=== PATIENT | female | born 1945 | race Caucasian/White ===

== ENCOUNTER 2024-08-12 09:35 | Day surgery (SDC) | payer MEDICARE, OTHER, SELFPAY ==
[2024-08-12] VITALS (11 sets, daily range): BP systolic 110–144; BP diastolic 68–95; PULSE 61–73; RESP 10–22; TEMP 36.9–37; O2SAT 94–99; BMI 22.7
[2024-08-12] MEDS: MIDAZOLAM INJ 1 MG/ML VIAL 2 ML (ASD USE ONLY) 2 MG IV ×2 (11:48→12:02)
[2024-08-12] MEDS: fentaNYL CIT INJ 50 mCg/ML AMP 2ML (ASD USE ONLY) IV ×2 (11:48→12:02)
--- NOTE | 2024-08-12 12:06 | SUR.OPER ---
1200 Pt has a very tortuous sigmoid. Colon scope exchanged earlier for an upper scope. Pt c/o discomfort. 1205 Procedure stopped. Pt needs to be rescheduled under MAC.
== END 2024-08-12 13:12 | disposition home or self-care (01) ==
PROVIDERS: PCP Family Medicine; Referring Provider Internal Medicine Gastroenterology; Visit Provider Internal Medicine Gastroenterology
PROC: 0DBE8ZX Excision of Large Intestine, Via Natural or Artificial Opening Endoscopic, Diagnostic (ICD-10-PCS; CPT 45380; principal; 2024-08-12 11:30)
DX: K64.9 Unspecified hemorrhoids (principal); K57.30 Diverticulosis of large intestine without perforation or abscess without bleeding
CPT/HCPCS: 45378; A4217; J2250; J3010

== ENCOUNTER 2024-10-25 10:05 | Day surgery (SDC) | payer MEDICARE, OTHER, SELFPAY ==
[2024-10-22 13:27] LABS: Partial Thromboplastin Time 25.3 Seconds (22.0-36.0); Prothrombin Time 10.9 Seconds (9.0-12.2)
[2024-10-22 13:30] LABS: Alanine Aminotransferase 13 U/L (10-49); Albumin, Serum 4.2 gm/dL (3.4-4.8); Albumin/Globulin Ratio 1.9 (1.2-2.2); Alkaline Phosphatase 66 U/L (46-116); Anion Gap 7 (7-16); Aspartate Amino Transferase 20 U/L (0-34); BUN/Creatinine Ratio 18 Ratio (12-20); Bilirubin,Total 1.4 mg/dL (0.3-1.2); Blood Urea Nitrogen 14 mg/dL (9-23); Calcium 9.1 mg/dL (8.3-10.6); Calcium (Corrected) 9.1 mg/dL (8.5-10.1); Carbon Dioxide 29.7 mMol/L (20.0-31.0); Chloride 103 mMol/L (98-107); Creatinine (Component) 0.8 mg/dL (0.6-1.3); Globulin 2.2 gm/dL (2.3-3.5); Glucose 90 mg/dL (74-106); Osmolality,Calculated 279 (275-295); Potassium 4.2 mMol/L (3.4-5.1); Sodium 140 mMol/L (136-145); Total Protein 6.4 gm/dL (5.7-8.2); eGFR > 60 See Note
--- NOTE | 2024-10-22 15:31 | EKG_ITS ---
[facility] Test Date: 2024-10-22 Pat Name: GENA GALVAN Department: Room: - Gender: Female Bariatric Physician: SONIA : [id number] Requested By: Curt Hernandez Order Number: [id number] Reading MD: Curt Hernandez Measurements Intervals [place] Rate: 82 P: 40 LA: 169 QRS: 32 QRSD: 84 T: 14 QT: 366 QTc: 429 Interpretive Statements SINUS RHYTHM LOW QRS VOLTAGE IN PRECORDIAL LEADS [QRS DEFLECTION < 1.0 mV IN CHEST LEADS] No previous ECG available for comparison /store/S0/[id number]/[id number]
[2024-10-25 10:54] VITALS: BP 124/76; PULSE 77; RESP 20; TEMP 36.2; O2SAT 97; BMI 22.2
[2024-10-25] MEDS: RINGERS LACTATED 1000 ML 1,000 ML 20 ML IV (11:50)
[2024-10-25 12:15] VITALS: BP 97/59; PULSE 96; RESP 18; TEMP 36.9; O2SAT 96
[2024-10-25 12:25] VITALS: BP 100/60; PULSE 86; RESP 15; O2SAT 99
[2024-10-25 12:35] VITALS: BP 108/71; PULSE 72; RESP 18; O2SAT 100
--- NOTE | 2024-10-25 12:42 | SUR.PHASEII ---
RESUME CARE FROM PHILOMENA [facility]OWE.
[2024-10-25 12:45] VITALS: BP 103/72; PULSE 64; RESP 18; O2SAT 98
== END 2024-10-25 13:05 | disposition home or self-care (01) ==
PROVIDERS: PCP Family Medicine; Referring Provider Specialist; Visit Provider Specialist
PROC: 0DBE8ZX Excision of Large Intestine, Via Natural or Artificial Opening Endoscopic, Diagnostic (ICD-10-PCS; CPT 45380; principal; 2024-10-25 12:45)
DX: K57.30 Diverticulosis of large intestine without perforation or abscess without bleeding (principal); Z01.810 Encounter for preprocedural cardiovascular examination; K64.9 Unspecified hemorrhoids
CPT/HCPCS: 45378; 36415; 80053; 85610; 85730; 93005; J7120

== ENCOUNTER → 2025-03-31 | Outpatient (CLI) | payer MEDICARE, OTHER, SELFPAY ==
--- NOTE | 2025-03-31 11:15 | XR_ITS ---
Examination: Screening digital mammography, bilateral Computer aided detection 3-D breast Tomosynthesis, bilateral Date and time of exam: March 31, 2025 1129 hours, compared to mammograms dating to March 17, 2019 Indication: Screening Technique: Nonmagnified MLO, CC views of the breasts to been obtained, reconstructed from 3-D Tomosynthesis images. R2 computer aided detection program utilized for evaluation of suspicious masses and/or abnormal calcifications. 3-D Tomosynthesis images obtained. Findings: The breasts are heterogeneously dense, which may obscure small masses Stable focal asymmetry upper outer left breast No interval suspicious masses Impression: BI-RADS category II: Benign Findings. Recommend 1 year follow-up mammogram.
--- NOTE | 2025-03-31 12:00 | XR_ITS ---
Examination: Bone densitometry Date and time of exam:March 31, 2025 1217 hours INDICATIONS: Menopause age 54, personal history osteopenia Technique: Lumbar spine and hip total bone mineralization values of an calculated. Peak reference and age match control results have been displayed. Findings: Lumbar spine total bone mineralization is1.022 gm/cm2. This is 0.2 standard deviations below peak reference. This is 2.3 standard deviations above age-matched controls. Hip total bone mineralization is 0.733 gm/cm2 This is 1.7 standard deviations below peak reference. This is 0.2 standard deviations above age-matched controls Impression: There is normal mineralization based on lumbar spine measurements. There is osteopenia based on hip measurements Lumbar mineralization is increase 7.3% compared with November 21, 2020 Hip mineralization is increased 1.5% compared with November 21, 2020
== END | disposition home or self-care (01) ==
PROVIDERS: PCP Nurse Practitioner Family; Referring Provider Nurse Practitioner Family; Visit Provider Nurse Practitioner Family
DX: Z12.31 Encounter for screening mammogram for malignant neoplasm of breast (principal); R92.323 Mammographic fibroglandular density, bilateral breasts; M85.88 Other specified disorders of bone density and structure, other site; M89.8X0 Other specified disorders of bone, multiple sites
CPT/HCPCS: 77063; 77067; 77080

== ENCOUNTER 2025-04-21 12:46 | Emergency (ER) | payer MEDICARE, OTHER, SELFPAY ==
--- NOTE | 2025-04-21 13:19 | XR_ITS ---
Examination: Fingers, left hand second digit 3 views Technique: AP, oblique, lateral views left hand second digit 3 views. Exam date and time: April 21 2025 1405 hours INDICATIONS: Laceration to the second digit today FINDINGS: Fracture traversing the ungual tuft tip distal phalanx index finger without significant displacement No foreign body IMPRESSION: Fracture ungual tuft tip distal phalanx second digit
[2025-04-21] MEDS: LIDOCAINE HCL 1% 20 ML VIAL INFL (13:37)
--- NOTE | 2025-04-21 14:05 | PD.EDWOUND ---
ED Wound/Laceration-RME/HPI General Chief Complaint: Wound/Laceration Stated Complaint: CUT TIP OF FINGER OFF Time Seen by Provider: 04/21/25 13:24 Arrival date/time: 04/21/25 12:46 RME / HPI RME / HPI narrative: 79-year-old female patient with no past medical history, came in for evaluation finger laceration. Patient sustained a finger laceration with electric prune cutter, sustaining left index fingertip laceration, involving the nailbed. Patient is not taking any blood thinner. Vaccination for tetanus is not sure. Incident happened few minutes prior to ER visit. Related Data Home Medications ?Medication ?Instructions ?Recorded ?Confirmed zolpidem 5 mg tablet 5 mg PO HS PRN insomnia 10/25/24 10/25/24 Held on 10/25/24. Instructions: Resume on 10/26/24. Previous Rx's ?Medication ?Instructions ?Recorded cephalexin 500 mg capsule 500 mg PO TID 7 days #21 caps 04/21/25 ibuprofen 600 mg tablet 600 mg PO Q8H PRN pain #30 tabs 04/21/25 Allergies Allergy/AdvReac Type Severity Reaction Status Date / Time quinine Allergy Severe Seizure Verified 04/21/25 12:51 Review of Systems Review of Systems Narrative Review of Systems: Review of system reviewed and within normal limits except mentioned in HPI ED Exam Narrative Physical exam: VITAL SIGNS: Reviewed. GENERAL APPEARANCE: Alert and interactive, follows commands, no acute distress, HEAD AND FACE: Non-traumatic. ENT: PERRL, pink conjunctivitis, eyelid no trauma, Mucous membrane moist. NECK: Supple, nontender, no nuchal rigidity. CHEST: No tenderness, no crepitus, no paradoxical movement, no retractions. LUNGS: Clear, well ventilated, symmetric, no rales, no wheezing, no ronchi, no stridor, good breath sounds bilaterally. HEART: Regular rate, regular rhythm, no murmur, no gallops. ABDOMEN: Soft, positive bowel sounds, nondistended, no guarding, nontender, no rebound, no masses, RECTAL: Deferred. GENITAL: Deferred. NEUROLOGICAL: Gross motor function intact sensory function intact, Appropriate for age. MUSCULOSKELETAL: low back nontender, full range of motion. EXTREMITIES: +1 cm left index fingertip involving the nail, no cyanosis noted, sensation intact, full range of motion. SKIN: Color pink, dry, no rash, no lacerations, no abrasions, no contusions. LYMPHATICS: Deferred. Course Quality Measures none Orders Category Date Time Status Set Up Suture Tray STAT Care 04/21/25 13:19 Active Wound Care NOW Care 04/21/25 13:19 Active XR finger LT min 2V Stat Exams 04/21/25 13:19 Completed Lidocaine 1% 20 ml [Xylocaine 1% 20 ML] Med 04/21/25 13:19 Discontinued 20 ml INFL X1 ONE TET,DIP/PERT AC (Adult)-Tdap [Boostrix Adult (Tdap) Med 04/21/25 15:05 Once Vacc] 0.5 ml IMI .ONCE ONE PROCEDURES: Laceration Laceration 1: Site: other (Left index finger) Size (cm): 1 Description: linear Depth: [id number] Local Anesthetic: lidocaine 1% Amount of anesthesia used (mL): 5 Pre-repair: wound explored and irrigated extensively Skin layer closed with: nylon Suture size (cm): 4-0 Number of sutures: 4 Technique: simple, interrupted Wound / Laceration [facility] Narrative MDM Narrative:: 79-year-old female patient with no past medical history, came in for evaluation finger laceration. Patient sustained a finger laceration with electric prune cutter, sustaining left index fingertip laceration, involving the nailbed. Patient is not taking any blood thinner. Vaccination for tetanus is not sure. Incident happened few minutes prior to ER visit. X-ray of the finger showed fracture of the distal tip of the finger left index finger, repair and suturing was done by me, finger splint applied. Patient will be sent home on Keflex and Motrin Stable for discharge home Patient data External records reviewed:: None Clinical information provided by:: patient Social determinants that could affect healthcare access:: none Patient has the following chronic illnesses:: None How is presenting disease/condition affected by chronic disease/condition?: no chronic disease Evaluation data The following diagnostics were reviewed and interpreted by me:: radiology exam(s) Lab and/or radiology exams considered but not ordered:: None Interpretation Summary: See results MDM Medications / Prescriptions Medications or Prescriptions considered but not ordered:: None lidocaine Medication administrations:: Medication Administration History Discontinued Medications Lidocaine HCl (Lidocaine Hcl 1% 20 Ml Vial) 20 ml INFL X1 ONE Stop: 04/21/25 13:20 Last Admin: 04/21/25 13:37 Dose: 20 ml Documented By: INGRID Comments: USED BY PROVIDER None Consultations Consultation(s) initiated? (list below): No Diagnosis Wound Differential Diagnosis: laceration, abrasion and avulsion of skin Most likely diagnosis given after review of the tests above:: Fingertip laceration, open fracture, finger distal phalanx, left index finger Admission Indicated Admission indicated?: not indicated Admission Request Was there a request for admission?: No Disposition Plan Disposition Plan: Discharge Discharge Attestation Discharge Attestation: The patient and all family members were given an opportunity to ask questions and understood the discharge instructions. Discharge instructions specifically effects, indications for sooner follow up or return to the emergency department, and the expected course of current diagnosis. Patient condition: Stable Discharge Plan Plan Patient Disposition: HOME (Self Care) Discharge Disposition comment: Stable Prescriptions/Referrals Prescriptions/Med Rec: New cephalexin 500 mg capsule 500 mg PO TID 7 Days Qty: 21 0RF ibuprofen 600 mg tablet 600 mg PO Q8H PRN (Reason: pain) Qty: 30 0RF No Action zolpidem 5 mg tablet 5 mg PO HS PRN (Reason: insomnia) Patient Comments: TAKE 1 TABLET BY MOUTH AT BEDTIME ONCE A DAY FOR SLEEP Referrals: Nydia Anne MD [Primary Care Provider, Family Practice] - In 1 week Problem List Clinical Impression: Finger laceration, Fracture of distal phalanx of finger Patient/Caregiver Discharge Instructions Discharge Activity: activity as tolerated Education Materials: ED Laceration: All Closures Additional Instructions: Thank you for the opportunity for serving you today. You are stable for discharged . You are advised to: Follow-up with your PCP in 1 to 2 days Return to ED for worsening of symptoms Increase oral fluids Take medication as prescribed Wear your finger splint for the next 4 weeks For removal of sutures in 7 days Print Language: Latvian Stand Alone Forms: Viviana Award Info., Patient Portal Info Letter CHARLES/ANGELINA Supervising Physician CHARLES/ANGELINA Supervising Physician: MD Phong
== END 2025-04-21 15:19 | disposition home or self-care (01) ==
PROVIDERS: Emergency Provider Family Medicine; PCP Family Medicine
DX: S61.311A Laceration without foreign body of left index finger with damage to nail, initial encounter (principal); S62.601A Fracture of unspecified phalanx of left index finger, initial encounter for closed fracture; W26.8XXA Contact with other sharp object(s), not elsewhere classified, initial encounter
CPT/HCPCS: 12001; 73140; 99284; J3490